=== PATIENT | female | born 1980 | race Caucasian/White ===

== ENCOUNTER 2017-11-29 04:45 | Emergency (ER) | payer SELFPAY ==
[~2017-11-29] VITALS: Ht 162.6 cm; Wt 60.5 kg
[2017-11-29 04:48] VITALS: BP 156/72; PULSE 97; RESP 18; TEMP 98.2; O2SAT 98
[2017-11-29] MEDS ORDERED: CLIN300C5 PO (04:55)
[2017-11-29] MEDS ORDERED: CLINDAMYCIN 150 MG CAP PO ONE (05:00)
[2017-11-29] MEDS ORDERED: KETOROLAC TROMETHAMINE 60 MG/2 ML (IM) VIAL IM ONE (05:00)
--- NOTE | 2017-11-29 05:03 | PD ---
HPI . Toothache Chief Complaint: Oral / Dental Pain or Problem Time Seen by Provider: 04:54 Travel History International Travel<30 days: No Contact w/Intl Traveler<30days: No Traveled to known affect area: No History of Present Illness HPI Patient presents with the chief complaint of a toothache. Onset was 3 days ago. It is getting progressively worse. She rates the pain 8/10. The pain has been unrelieved by smoking a lot of pot and taking ibuprofen. She states that she had a fever at the onset of her symptoms. She feels like she is developing a "knot" in her jaw. PFSH Past Medical History Cancer: No Cardiovascular Problems: No COPD: Yes Diabetes: No Diminished Hearing: No Hepatitis: No Hiatal Hernia: No Medical other: Yes (HX OF CHILDHOOD SEIZURES, BACK PROBLEMS, ) Respiratory: Yes (COPD) Immunizations Current: No Thyroid Disease: Yes ( A TEENAGER, NOT CURRENT) ?: Not LMP: 11/20/17 Menopausal: Yes : 2 Para: 2 Ovarian Cysts: Yes Tubal Ligation: Yes Past Surgical History Gynecologic Surgery: Yes (TUBAL LIGATION) Pacemaker: No Thoracic Surgery: Yes (BREAST AUGMENTATION) Other Surgery: Yes (BILATERAL BREAST ENHANCEMENT) Social History Alcohol Use: Yes (occassional) Tobacco Use: Yes (1 ppd ) Substance Use: Yes ("POT") Allergies-Medications (Allergen,Severity, Reaction): Coded Allergies: benztropine (Unverified Allergy, Severe, SEIZURES, 11/29/17) bupropion (Unverified Allergy, Severe, SEIZURES, 11/29/17) Reported Meds & Prescriptions Reported Meds & Active Scripts Active Clindamycin (Clindamycin HCl) 300 Mg Cap 300 Mg PO TID Review of Systems Except as stated in HPI: all other systems reviewed are Neg General / Constitutional: Positive: Fever HENT: Positive: Dental Difficulties Physical Exam Narrative GENERAL: Awake and alert and in no acute distress. SKIN: Warm and dry. HEAD: Normocephalic/atraumatic. EYES: Pupils are equal. Extraocular movements are intact. ENT: Poor dental hygiene. Her right mandibular molars are both deeply decayed. There is tenderness to percussion of the second molar. There is no third molar. No swelling of the jaw. NECK: Normal range of motion. No cervical lymphadenopathy. CARDIOVASCULAR: Regular rate and rhythm. RESPIRATORY: Nonlabored respirations. MUSCULOSKELETAL: Atraumatic. NEUROLOGICAL: Nonfocal. PSYCHIATRIC: Appropriate mood and affect. Data Data Last Documented VS Vital Signs Date Time Temp Pulse Resp B/P (MAP) Pulse Ox O2 Delivery O2 Flow Rate FiO2 11/29/17 04:48 98.2 97 18 156/72 (100) 98 Orders Orders Ketorolac Inj (Toradol Inj) (11/29/17 05:00) Clindamycin (Cleocin) (11/29/17 05:00) MDM Medical Decision Making Medical Screen Exam Complete: Yes Emergency Medical Condition: Yes Differential Diagnosis Differential diagnosis of a toothache includes but is not limited to dental caries, dental abscess, gingivitis, drug-seeking behavior. Narrative Course Patient presents with a chief complaint of a toothache. There is no associated facial swelling. There is no associated lymphadenopathy. I will treat her here with a Toradol shot. She will be discharged home on clindamycin with instructions to follow-up with a dentist. Diagnosis Primary Impression: Toothache Patient Instructions: General Instructions, Toothache (ED) Departure Forms: Tests/Procedures Additional Instructions: Follow-up with a dentist of choice Scripts Clindamycin (Clindamycin) 300 Mg Cap 300 MG PO TID for Infection, #21 CAP 0 Refills Prov: Karmen Covarrubias MD 11/29/17 Disposition: 01 DISCHARGE HOME Condition: Stable Karmen Covarrubias MD Nov 29, 2017 05:03
== END 2017-11-29 07:19 | disposition home or self-care (01) ==
LOC: PHED 04:45
DX: K08.89 Other specified disorders of teeth and supporting structures (principal); J44.9 Chronic obstructive pulmonary disease, unspecified; F17.200 Nicotine dependence, unspecified, uncomplicated; Z88.8 Allergy status to other drugs, medicaments and biological substances
CPT/HCPCS: 96372; 99284; J1885

== ENCOUNTER 2018-02-19 14:29 | Emergency (ER) | payer SELFPAY ==
[~2018-02-19] VITALS: Ht 162.6 cm; Wt 59.0 kg
[~2018-02-19 14:29] MED LIST: CLIN300C5 PO
[2018-02-19 14:34] VITALS: BP 152/79; PULSE 85; RESP 16; TEMP 98.2; O2SAT 98
--- NOTE | 2018-02-19 15:11 | PD ---
HPI Chief Complaint: Skin Problem Time Seen by Provider: 14:59 Travel History International Travel<30 days: No Contact w/Intl Traveler<30days: No Traveled to known affect area: No History of Present Illness HPI 37-year-old female presents emergency department for evaluation of wounds to left hand that occurred yesterday. Says that she was digging in a dirty pool yesterday and she accidentally cut herself on the tile. Says that she was trying to get turtles out of the pool. Says that over the last 24 hours she has had a lesion to the distal middle finger which she popped and had pus come out. In addition, says she has a laceration to the dorsal aspect of the ring finger PIP and is unable to remove the ring from her finger. Says that the pain is moderate in severity. 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 She does not know when her last tetanus vaccination was. Denies numbness or tingling. Denies fever or chills. PFSH Past Medical History Cancer: No Cardiovascular Problems: No COPD: Yes Diabetes: No Diminished Hearing: No Hepatitis: No Hiatal Hernia: No Medical other: Yes (HX OF CHILDHOOD SEIZURES, BACK PROBLEMS, ) Respiratory: Yes (COPD) Immunizations Current: No Thyroid Disease: Yes ( A TEENAGER, NOT CURRENT) Tetanus Vaccination: > 5 Years Influenza Vaccination: No ?: Not LMP: LAST MONTH Menopausal: Yes : 2 Para: 2 Ovarian Cysts: Yes Tubal Ligation: Yes Past Surgical History Gynecologic Surgery: Yes (TUBAL LIGATION) Pacemaker: No Thoracic Surgery: Yes (BREAST AUGMENTATION) Other Surgery: Yes (BILATERAL BREAST ENHANCEMENT) Social History Alcohol Use: Yes (occassional) Tobacco Use: Yes (1 ppd ) Substance Use: Yes ("POT") Allergies-Medications (Allergen,Severity, Reaction): Coded Allergies: benztropine (Unverified Allergy, Severe, SEIZURES, 02/19/18) bupropion (Unverified Allergy, Severe, SEIZURES, 02/19/18) Reported Meds & Prescriptions Reported Meds & Active Scripts Active Keflex (Cephalexin) 500 Mg Cap 500 Mg PO Q8H 10 Days Bactrim DS (Sulfamethoxazole-Trimethoprim) 800-160 Mg Tab 1 Tab PO BID Review of Systems Except as stated in HPI: all other systems reviewed are Neg Physical Exam Narrative GENERAL: Well-nourished, well-developed patient. SKIN: Focused skin assessment warm/dry. Left hand- distal aspect of middle finger with open lesion, no exudate expressed. PIP with a 1 cm laceration, superficial lesion. No exudate HEAD: Normocephalic. EYES: No scleral icterus. No injection or drainage. NECK: Supple, trachea midline. No JVD or lymphadenopathy. CARDIOVASCULAR: Regular rate and rhythm without murmurs, gallops, or rubs. RESPIRATORY: Breath sounds equal bilaterally. No accessory muscle use. GASTROINTESTINAL: Abdomen soft, non-tender, nondistended. MUSCULOSKELETAL: No cyanosis, or edema. BACK: Nontender without obvious deformity. No CVA tenderness. Data Data Last Documented VS Vital Signs Date Time Temp Pulse Resp B/P (MAP) Pulse Ox O2 Delivery O2 Flow Rate FiO2 02/19/18 14:34 98.2 85 16 152/79 (103) 98 Orders Orders Tetanus/Diphtheria Tox Adult (Tetanus/Di (02/19/18 15:30) Ed Discharge Order (02/19/18 15:46) MDM Medical Decision Making Medical Screen Exam Complete: Yes Emergency Medical Condition: Yes Differential Diagnosis Left hand laceration, cellulitis, avulsion Narrative Course 37-year-old female presents emergency department evaluation of laceration wounds to left hand that she sustained yesterday. Says that she was cleaning a pool trying to get turtles out of the pool when she accidentally cut her fingers. Says that she had a lesion that expressed past but popped this and it went away. Vital signs are stable. Physical exam findings demonstrate a laceration to the left PIP ring finger, wound to the distal aspects of the index finger Tetanus vaccine administered in the emergency department today. Perform digital block to the ring finger to assist with ring removal. We were able to successfully remove the ring from the finger. Patient will be discharged with antibiotics. Advised that she could should keep her wounds clean and dry. Advised to monitor for signs of infection. Procedures Procedure Narrative I performed a digital block of the left ring finger to assist in the ring removal. Using aseptic technique, injected approximately 3 cc lidocaine 2% without epinephrine as a digital block to the left ring finger. Diagnosis Primary Impression: Laceration of finger Qualified Codes: S61.215A - Laceration without foreign body of left ring finger without damage to nail, initial encounter Referrals: Primary Care Physician Additional Instructions: Follow up with your primary care physician within 2-3 days. If your symptoms persist or worsen, return to the emergency department. Keep area clean and dry. You may bathe as normal. You may use [id number] triple antibiotic ointments for your injury daily. Change dressings daily. If bleeding starts again, applied pressure and elevate the area. If he developed increased redness, swelling, or pain return to the emergency department. Scripts Cephalexin (Keflex) 500 Mg Cap 500 MG PO Q8H for Infection for 10 Days, #30 CAP 0 Refills Prov: Veronica Castellanos DO 02/19/18 Sulfamethoxazole-Trimethoprim (Bactrim DS) 800-160 Mg Tab 1 TAB PO BID for Infection, #20 TAB 0 Refills Prov: Veronica Castellanos DO 02/19/18 Disposition: 01 DISCHARGE HOME Condition: Stable Patt Hdez Feb 19, 2018 15:11
[2018-02-19] MEDS ORDERED: TETANUS/DIPHTHERIA TOXOID ADULT 0.5 ML VIAL IM ONE (15:30)
[2018-02-19] MEDS ORDERED: BACT800T5 PO (15:46)
[2018-02-19] MEDS ORDERED: CEPH-460 PO (15:46)
== END 2018-02-19 16:05 | disposition home or self-care (01) ==
LOC: PHEFT 14:29
DX: S61.215A Laceration without foreign body of left ring finger without damage to nail, initial encounter (principal); S60.943A Unspecified superficial injury of left middle finger, initial encounter; W26.8XXA Contact with other sharp object(s), not elsewhere classified, initial encounter; J44.9 Chronic obstructive pulmonary disease, unspecified; F17.200 Nicotine dependence, unspecified, uncomplicated; F12.90 Cannabis use, unspecified, uncomplicated; Z23 Encounter for immunization
CPT/HCPCS: 64450; 90471; 90714

== ENCOUNTER 2018-04-16 11:34 | Emergency (ER) | payer SELFPAY ==
[~2018-04-16] VITALS: Ht 162.6 cm; Wt 60.0 kg
[~2018-04-16 11:34] MED LIST changes: +BACT800T5 PO; +CEPH-460 PO; -CLIN300C5 PO
[2018-04-16 11:45] VITALS: BP 116/68; TEMP 98.5; O2SAT 100
--- NOTE | 2018-04-16 12:57 | PD ---
HPI Chief Complaint: Skin Problem Time Seen by Provider: 12:08 Travel History International Travel<30 days: No Contact w/Intl Traveler<30days: No Traveled to known affect area: No History of Present Illness HPI 38-year-old female that presents to the ED for evaluation of possible staph infection. Per patient she has bumps on her groin, axilla, face that popped up to 4 days ago. Per patient her itching also painful. She is concerned because she has a history of staph and looks the same as her staph infections in the past. Per patient her boyfriend was recently seen here for a abscess and staph infection and she is concerned that she got it from him. She states that it is red and swollen. She has one on the face but she states that she would make up because she feels very ashamed of it. She states that she feels like something is crawling on her skin. She appears to be somewhat anxious on exam. He states that her pain is 3 out of 10 but she feels more anxious and "unclean". She also states that she may have a UTI as she is having some blood in her urine. PFSH Past Medical History Cancer: No Cardiovascular Problems: No COPD: Yes Diabetes: No Diminished Hearing: No Hepatitis: No Hiatal Hernia: No Respiratory: Yes (COPD) Immunizations Current: No Thyroid Disease: Yes ( A TEENAGER, NOT CURRENT) ?: Not Menopausal: Yes : 2 Para: 2 Ovarian Cysts: Yes Tubal Ligation: Yes Past Surgical History Gynecologic Surgery: Yes (TUBAL LIGATION) Pacemaker: No Thoracic Surgery: Yes (BREAST AUGMENTATION) Other Surgery: Yes (BILATERAL BREAST ENHANCEMENT) Social History Alcohol Use: Yes (occassional) Tobacco Use: Yes (1 ppd ) Substance Use: Yes ("POT") Allergies-Medications (Allergen,Severity, Reaction): Coded Allergies: benztropine (Unverified Allergy, Severe, SEIZURES, 04/16/18) bupropion (Unverified Allergy, Severe, SEIZURES, 04/16/18) Reported Meds & Prescriptions Reported Meds & Active Scripts Active Keflex (Cephalexin) 500 Mg Cap 500 Mg PO Q8H 10 Days Bactrim DS (Sulfamethoxazole-Trimethoprim) 800-160 Mg Tab 1 Tab PO BID Review of Systems Except as stated in HPI: all other systems reviewed are Neg Physical Exam Narrative GENERAL: SKIN: Warm and dry. Seen with female nurse present at all times. Patient has an erythematous rash on right side of the face, left axilla, groin area as well. Almost appears to be bug bites but this appears to be erythematous and slightly warm to touch especially on the axilla. No obvious discharge or purulence noted. No lymphadenopathy noted. HEAD: Atraumatic. Normocephalic. EYES: Pupils equal and round. No scleral icterus. No injection or drainage. ENT: No nasal bleeding or discharge. Mucous membranes pink and moist. Tongue is midline. No uvula deviation. NECK: Trachea midline. No JVD. CARDIOVASCULAR: Regular rate and rhythm. No murmurs, S3, S4. RESPIRATORY: No accessory muscle use. Clear to auscultation. Breath sounds equal bilaterally. GASTROINTESTINAL: Abdomen soft, non-tender, nondistended. Hepatic and splenic margins not palpable. MUSCULOSKELETAL: Extremities without clubbing, cyanosis, or edema. No obvious deformities. NEUROLOGICAL: Awake and alert. No obvious cranial nerve deficits. Motor grossly within normal limits. Five out of 5 muscle strength in the arms and legs. Normal speech. PSYCHIATRIC: Appropriate mood and affect; insight and judgment normal. Data Data Last Documented VS Vital Signs Date Time Temp Pulse Resp B/P (MAP) Pulse Ox O2 Delivery O2 Flow Rate FiO2 04/16/18 11:45 98.5 101 16 116/68 (84) 100 Orders Orders Urinalysis - C+S If Indicated (04/16/18 12:11) Labs Laboratory Tests Test 04/16/18 12:18 [facility] Medical Decision Making Medical Screen Exam Complete: Yes Emergency Medical Condition: Yes Medical Record Reviewed: Yes Interpretation(s) UA shows signs of UTI Differential Diagnosis Insect bite versus staph infection versus cellulitis versus folliculitis versus UTI Narrative Course 38-year-old female that presents to the ED for evaluation of rash on the skin. Patient was properly examined and was found to have signs and symptoms which appear to be consistent with appears to be possible staph infection but unclear. They almost appear like insect bites. Some of them do not morales and they are slightly warm to the touch. Could be folliculitis. With her history of recent contact with someone with staph infection I think is reasonable to start her antibiotics. She also complained of UTI. Will check a urine. Urine came positive for UTI. Patient will be treated for this with Bactrim and Keflex. Told to follow-up closely with PCP. Given Atarax for itchiness. See ED if worsening symptoms. Diagnosis Primary Impression: Skin infection Additional Impression: UTI (urinary tract infection) Qualified Codes: N30.01 - Acute cystitis with hematuria Patient Instructions: General Instructions Additional Instructions: Take medications as prescribed. Follow-up with PCP. Symptoms should improve in the next 72 hours. Anything worsens come back to the ED. See ED if worsening symptoms. Med/Other Pt SpecificInfo: Prescription(s) given Disposition: 01 DISCHARGE HOME Condition: Stable Sabas Connelly Apr 16, 2018 12:57
[2018-04-16] MEDS ORDERED: VIST25CA PO (12:59)
[2018-04-16] MEDS ORDERED: CEPH-460 PO (12:59)
[2018-04-16] MEDS ORDERED: BACT800T5 PO (12:59)
[2018-04-16 13:02] LABS: BACTERIA, URINE FEW /hpf; BILIRUBIN, URINE NEG (NEG); BLOOD, URINE SMALL (NEG); GLUCOSE,URINE NEG (NEG); KETONE, URINE NEG (NEG); MUCUS URINE FEW /lpf (OCC); NITRITE,URINE NEG (NEG); SQUAMOUS EPITHELIAL CELL URINE 3 /hpf (0-5); URINE COLOR YELLOW (YELLW/STRAW); URINE LEUKOCYTE ESTERASE LARGE (NEG); WHITE BLOOD CELL CLUMPS FEW
== END 2018-04-16 13:23 | disposition home or self-care (01) ==
LOC: NEPK 11:34
DX: L08.9 Local infection of the skin and subcutaneous tissue, unspecified (principal); N30.01 Acute cystitis with hematuria; F17.200 Nicotine dependence, unspecified, uncomplicated
CPT/HCPCS: 81001; 87086; 99283

== ENCOUNTER 2018-08-03 21:36 | Observation (INO) ==
[2018-08-03] MEDS ORDERED: Morphine Inj 4 MG/ML Vial IV.PUSH ONE (22:20)
--- NOTE | 2018-08-03 22:31 | ED ---
HPI General Chief Complaint: Syncope Stated Complaint: syncope Time Seen by Provider: 08/03/18 22:16 History of Present Illness HPI narrative: Previously healthy 38-year-old woman had syncopal episode while at a bar having a beer. Patient was there with a friend, had only been there 30 minutes, was having first beer, began feeling lightheaded, notified her friend, but passed out before anything else could be done, and patient awakened on the floor, having struck her head, complains of headache generally, no focal neurologic symptoms, and significant neck pain, bilateral flank pain, worse in left thumb and left elbow pain. She has moderate discomfort in her left shoulder. She has not felt sick previously, has been eating and drinking normally, does not drink alcohol to excess, and had not had any similar symptoms previously during the day. Discomfort in neck is moderate to severe, 8 -9 out of 10, pain in thumb is also severe, 8-9 out of 10, with any movement. Related Data Home Medications Medication Instructions Recorded Confirmed No Known Home Medications 08/03/18 08/03/18 Previous Rx's Medication Instructions Recorded cyclobenzaprine 5 mg PO Q8HR PRN #21 tab 08/04/18 gabapentin [Neurontin] 300 mg PO TID 30 Days #90 cap 08/04/18 tramadol [Ultram] 50 mg PO Q6H PRN #12 tab 08/04/18 Allergies Allergy/AdvReac Type Severity Reaction Status Date / Time benztropine Allergy Severe SEIZURES Verified 08/03/18 21:42 bupropion Allergy Severe SEIZURES Verified 08/03/18 21:42 Review of Systems ROS: all other systems reviewed are negative Constitutional Denies chills, Denies fatigue, Denies fever(s), Denies frequent falls and Reports headache(s) Eyes Denies loss of vision ENT Denies throat swelling Cardiovascular Denies chest pain and Denies dyspnea Respiratory Denies chest congestion, Denies cough, Denies dyspnea and Denies stridor Gastrointestinal Denies abdominal pain, Denies nausea and Denies vomiting Genitourinary Reports urinary incontinence (Patient was on long board, felt that she was incontinent, has some urge to urinate.) Musculoskeletal Reports as per HPI, Reports limited range of motion and Reports radiating pain into limb Neurologic Denies abnormal speech, Denies dizziness, Reports syncope, Denies focal weakness , Denies memory loss, Denies convulsions, Denies seizure-like activity and Denies sensory deficit [facility] Social History Social History Substance History: Active Abuse Second Hand Smoke Exposure: Yes Smoking Status: Light tobacco smoker Tobacco Type: Cigarettes Packs Per Day: 0.5 Cigarettes Per Day: 10.0 How Often Do You Have a Drink Containing Alcohol: Monthly or less Recent Travel in [facility] within the Last 8 Weeks: No Recent Out of Country Travel within the Last 8 Weeks: No Immunization History Tetanus Immunization: <5 Years Exam Narrative Exam Narrative: Adult female, on long board in C-spine immobilization, rigid collar in place, awake and oriented, in obvious discomfort, predominantly neck and left thumb pain. Vital signs are stable. GENERAL: [-] SKIN: Focused skin assessment warm/dry. HEAD: Atraumatic. Normocephalic. EYES: no bony defect underlying, pupils equal and round. Extra movements normal and without pain no scleral icterus. No injection or drainage. ENT: Small 1 cm abrasion left mid forehead, TM's clear, No nasal bleeding or discharge. Mucous membranes pink and moist. NECK: palpation through C-collar tender diffusely posteriorly, bilateral and along cervical vertebra, no bony stepoff. Trachea midline. No JVD. CARDIOVASCULAR: Regular rate and rhythm. No murmur appreciated. RESPIRATORY: No accessory muscle use. Clear to auscultation. Breath sounds equal bilaterally. GASTROINTESTINAL: Abdomen soft, non-tender, nondistended. Hepatic and splenic margins not palpable. MUSCULOSKELETAL: Marked tenderness to left thumb, predominantly about carpometacarpal joint, but without significant swelling, no laceration or abrasion, joint is stable, neurovascular status from remains intact both hands, good manufacturing specialist strength bilaterally, normal capillary refill; there is also moderate tenderness to palpation of right thumb, again without evidence of trauma, no swelling, but tender more towards the carpometacarpal joint. Passive range of motion is normal, finger movement is normal. Also tenderness to left elbow, but good range of motion, normal anatomy without deformity, and mild tenderness to palpation of the left shoulder, but good range of motion without limitation. Nontender lower extremities, no joint effusions, normal range of motion lower extremities bilaterally. BACK: no lumbar tenderness NEUROLOGICAL: Awake and alert. No obvious cranial nerve deficits. Motor shows fairly good manufacturing specialist strength, although patient has perceived weakness, and she has prominent paresthesias with light stroking over both thumbs. Good flexion and extension at elbows bilaterally, but she has prominent perceived tenderness and paresthesias over her triceps posteriorly. Normal motor strength lower extremities. Normal speech. PSYCHIATRIC: Appropriate mood and affect; insight and judgment normal. Course Reevaluation(s) Reevaluation #1: Patient stable on arrival back from CT, but neurologic exam still shows prominent paresthesias, pain and perceived weakness in her upper extremities, at hand, and also in forearm and triceps on the left. Patient set up, became significantly symptomatic, felt lightheaded, required laying down immediately Time: 01:17 Initial Documented Vital Signs Temperature 99.5 F 08/03/18 21:43 Pulse Rate 86 08/03/18 21:43 Respiratory Rate 16 08/03/18 21:43 Blood Pressure 139/84 08/03/18 21:43 Pulse Oximetry 100 08/03/18 21:43 Last Documented Vital Signs Temperature 98.2 F 08/04/18 16:00 Pulse Rate 61 08/04/18 16:00 Respiratory Rate 18 08/04/18 16:00 Blood Pressure 113/59 L 08/04/18 16:00 Pulse Oximetry 100 08/04/18 16:00 Medical Decision Making MDM Narrative Medical decision making narrative: Patient sustained a fall during a spontaneous syncopal episode, while at a bar, although she was not intoxicated, had less than 1 drink. She struck her head, and reported significant neck pain , and although she objectively had good motor strength in upper extremities, she had significant paresthesias. CT scan of brain was negative, CT scan of the neck showed no evidence of fracture. Patient has persistence of subjective sensations, and its in a dermatomal pattern, which is suspicious for central cord syndrome. Consultation with neurosurgeon, Dr. Lauren, who recommended patient be admitted for observation, and to have MRI in the morning. Medical Screen Exam Complete: Yes Emergency Medical Condition: Yes Lab Data Result diagrams: 08/04/18 02:00 08/04/18 02:00 POC Results POC Urine Results Negative Lab Results 08/04/18 08/04/18 08/04/18 Range/Units 02:00 02:00 02:00 WBC 9.9 (4.0-11.0) th/mm3 RBC 4.40 (4.00-5.30) mil/mm3 Hgb 12.5 (11.6-15.3) gm/dL Hct 37.9 (35.0-46.0) % MCV 86.2 (80.0-100.0) fL MCH 28.4 (27.0-34.0) pg MCHC 33.0 (32.0-36.0) % RDW 17.0 (11.6-17.2) % Plt Count 388 (150-450) th/mm3 MPV 10.3 (7.0-11.0) fL Neut % (Auto) 69.1 (16.0-70.0) % Lymph % (Auto) 23.6 (9.0-44.0) % Mason % (Auto) 4.6 (0.0-8.0) % Eos % (Auto) 2.1 (0.0-4.0) % Baso % (Auto) 0.6 (0.0-2.0) % Neut # (Auto) 6.8 (1.8-7.7) th/mm3 Lymph # (Auto) 2.3 (1.0-4.8) th/mm3 Mason # (Auto) 0.5 (0.0-0.9) th/mm3 Eos # (Auto) 0.2 (0.0-0.4) th/mm3 Baso # (Auto) 0.1 (0.0-0.2) th/mm3 WBC Differential . Differential Comment Auto diff final PT 9.8 (9.8-11.6) sec INR 1.0 Ratio Sodium 141 (136-145) meq/L Potassium 3.9 (3.5-5.1) meq/L Chloride 107 (98-107) meq/L Carbon Dioxide 21.8 (21.0-32.0) meq/L Anion Gap 12 (5-15) meq/L BUN 29 H (7-18) mg/dL Creatinine 0.90 (0.50-1.00) mg/dL Estimated GFR 70 L (>89) mL/min Random Glucose 109 H (74-106) mg/dL Calcium 8.1 L (8.5-10.1) mg/dL Total Bilirubin 0.3 (0.2-1.0) mg/dL AST 13 L (15-37) U/L ALT 20 (10-53) U/L Alkaline Phosphatase 44 L (45-117) U/L Total Protein 6.4 (6.4-8.2) g/dL Albumin 3.3 L (3.4-5.0) g/dL Urine Opiates Screen (Neg) Ur Barbiturates Screen (Neg) Ur Amphetamines Screen (Neg) U Benzodiazepines Scrn (Neg) Urine Cocaine Screen (Neg) U Cannabinoids Screen (Neg) Serum Alcohol Less than 3 (0-5) mg/dL 08/04/18 08/04/18 Range/Units 02:00 02:18 WBC (4.0-11.0) th/mm3 RBC (4.00-5.30) mil/mm3 Hgb (11.6-15.3) gm/dL Hct (35.0-46.0) % MCV (80.0-100.0) fL MCH (27.0-34.0) pg MCHC (32.0-36.0) % RDW (11.6-17.2) % Plt Count (150-450) th/mm3 MPV (7.0-11.0) fL Neut % (Auto) (16.0-70.0) % Lymph % (Auto) (9.0-44.0) % Mason % (Auto) (0.0-8.0) % Eos % (Auto) (0.0-4.0) % Baso % (Auto) (0.0-2.0) % Neut # (Auto) (1.8-7.7) th/mm3 Lymph # (Auto) (1.0-4.8) th/mm3 Mason # (Auto) (0.0-0.9) th/mm3 Eos # (Auto) (0.0-0.4) th/mm3 Baso # (Auto) (0.0-0.2) th/mm3 WBC Differential Differential Comment PT (9.8-11.6) sec INR Ratio Sodium (136-145) meq/L Potassium (3.5-5.1) meq/L Chloride (98-107) meq/L Carbon Dioxide (21.0-32.0) meq/L Anion Gap (5-15) meq/L BUN (7-18) mg/dL Creatinine (0.50-1.00) mg/dL Estimated GFR (>89) mL/min Random Glucose (74-106) mg/dL Calcium (8.5-10.1) mg/dL Total Bilirubin (0.2-1.0) mg/dL AST (15-37) U/L ALT (10-53) U/L Alkaline Phosphatase (45-117) U/L Total Protein (6.4-8.2) g/dL Albumin (3.4-5.0) g/dL Urine Opiates Screen Neg (Neg) Ur Barbiturates Screen Neg (Neg) Ur Amphetamines Screen Neg (Neg) U Benzodiazepines Scrn Neg (Neg) Urine Cocaine Screen Neg (Neg) U Cannabinoids Screen Pos H (Neg) Serum Alcohol Cancelled (0-5) mg/dL Imaging Data Radiologist's impression: Cervical Spine CT 08/03/18 22:17 CONCLUSION: 1. No acute fracture. Moderate degenerative change with slight reversal of normal cervical lordosis Head CT 08/03/18 22:17 CONCLUSION: 1. No acute intracranial abnormalities. Stable small cystic change on the right , possibly a choroid fissure cyst. . Elbow X-Ray 08/03/18 22:20 CONCLUSION: Negative left elbow series. Hand X-Ray 08/03/18 22:20 CONCLUSION: No acute abnormality is seen. Hand X-Ray 08/03/18 22:20 CONCLUSION: Negative left hand series. Shoulder X-Ray 08/03/18 22:20 CONCLUSION: Negative single AP view of the left shoulder. Carotid Doppler Study 08/04/18 00:00 CONCLUSION: 1. Right Internal Carotid Artery: No significant stenosis or atherosclerotic plaque is visualized. 2. Left Internal Carotid Artery: No significant stenosis or atherosclerotic plaque is visualized. Cervical Spine MRI 08/04/18 00:00 CONCLUSION: 1. Multilevel degenerative disc disease most significantly at C4-C5 and extending through C6-C7. The spinal cord demonstrates mild effacement through these levels but remains normal in signal. Spinal canal is mildly narrowed at these levels. 2. Multiple areas with mild to moderate neural foraminal narrowing, as above. 3. Severe left facet arthrosis at C2-C3. Discharge Plan Discharge Disposition Patient Disposition: 30 Still Patient Discharge Condition Condition: Stable Discharge Order Discharge Orders: Discharge Order (Routine); Ordered 08/04/18 Ordered By: Hilary Luo Discharge Details Anticipated Discharge Date: 08/04/18 Discharge Comment: Please discharge once Neurosurgery has discussed with patient. Thank you. Diagnosis: Acute cervical myofascial strain, Central cord syndrome, Forehead contusion, Syncope Physicians Team ED Provider: Pb Murray Primary Care Provider: Primary Care Meagan Vizcaino Attending Provider: Hilary Luo Other Providers: Adam Benitez Status ED Status: Left Department Discharge Information Discharge Date/Time: 08/04/18 05:10
--- NOTE | 2018-08-03 22:46 | CT ---
EXAM DATE: 08/03/2018 10:26 PM EDT AGE/SEX: 38 years / Female INDICATIONS: Trauma; head injury. Neck pain, numbness in both upper extremities. CLINICAL DATA: This is the patient's initial encounter. Patient reports that signs and symptoms have been present for 1 day and indicates a pain score of 7/10. MEDICAL/SURGICAL HISTORY: None. Breast augmentation. Tubal ligation. RADIATION DOSE: 56.35 CTDI (mGy) COMPARISON: [facility], CT HEAD W/O CONTRAST, 05/28/2018. . TECHNIQUE: CT of the head without contrast. Using automated exposure control and adjustment of the mA and/or kV according to patient size, radiation dose was kept as low as reasonably achievable to ob tain optimal diagnostic quality images. DICOM format image data is available electronically for revi ew and comparison. FINDINGS: Cerebrum: The ventricles are normal for age. No evidence of midline shift, mass lesion, hemorrhage or acute infarction. No extraaxial fluid collections are seen. Posterior Fossa: The cerebellum and brainstem are intact. The 4th ventricle is midline. The cerebe llopontine angle is unremarkable. Extracranial: The visualized portion of the orbits is intact. Skull: The calvaria is intact. No evidence of skull fracture. CONCLUSION: 1. No acute intracranial abnormalities. Stable small cystic change on the right, possibly a choroid fissure cyst. . Electronically signed by: Butch De La O MD 08/03/2018 10:44 PM EDT
--- NOTE | 2018-08-03 22:50 | CT ---
EXAM DATE: 08/03/2018 10:26 PM EDT AGE/SEX: 38 years / Female INDICATIONS: Trauma; head injury. Neck pain, numbness in both upper extremities. CLINICAL DATA: This is the patient's initial encounter. Patient reports that signs and symptoms have been present for 1 day and indicates a pain score of 7/10. MEDICAL/SURGICAL HISTORY: None. Breast augmentation. Tubal ligation. RADIATION DOSE: 15.63 CTDI (mGy) COMPARISON: No prior exams available for comparison. TECHNIQUE: Contiguous axial images were obtained using helical multirow detector technique. The vol umetric data was post-processed with multiplanar reconstruction in oblique axial, sagittal, and coron al planes. Using automated exposure control and adjustment of the mA and/or kV according to patient s ize, radiation dose was kept as low as reasonably achievable to obtain optimal diagnostic quality clotilde ges. DICOM format image data is available electronically for review and comparison. FINDINGS: No acute fracture. Moderate degenerative disc disease with slight reversal of normal cervical lordosi s. At C2-3 there is no significant abnormality. At C3-4 there is no canal stenosis. Mild left foraminal stenosis. At C4-5-6-7 there is mild AP canal and lateral recess and foraminal stenosis. CONCLUSION: 1. No acute fracture. Moderate degenerative change with slight reversal of normal cervical lordosis Electronically signed by: Butch De La O MD 08/03/2018 10:48 PM EDT
--- NOTE | 2018-08-03 23:04 | XR ---
EXAM DATE: 08/03/2018 10:20 PM EDT AGE/SEX: 38 years / Female INDICATIONS: Trauma. Patient fainted and fell. CLINICAL DATA: This is the patient's initial encounter. Patient reports that signs and symptoms have been present for 1 day and indicates a pain score of 7/10. MEDICAL/SURGICAL HISTORY: None. . Breast augmentation. Tubal ligation COMPARISON: No prior exams available for comparison. FINDINGS: Bony structures are intact and in normal alignment. Joints are intact without dislocation or signifi cant arthropathy. Osseous density is normal. Soft tissues are unremarkable. No radiopaque foreign bodies seen. CONCLUSION: Negative left elbow series. Electronically signed by: Sesar Stevens MD 08/03/2018 11:03 PM EDT
--- NOTE | 2018-08-03 23:06 | XR ---
EXAM DATE: 08/03/2018 10:20 PM EDT AGE/SEX: 38 years / Female INDICATIONS: Trauma. Fainted and fell. CLINICAL DATA: This is the patient's initial encounter. Patient reports that signs and symptoms have been present for 1 day and indicates a pain score of 8/10. MEDICAL/SURGICAL HISTORY: None. . Left wrist ORIF. COMPARISON: No prior exams available for comparison. FINDINGS: There is an orthopedic plate seen along the distal volar aspect of the radius from prior fracture. 2 screws are seen through the proximal aspect of the fifth metacarpal. There are chronic well-corticate d fragments seen at the ulnar styloid region. An acute fracture is not seen. The bones and joints yves ear aligned. CONCLUSION: No acute abnormality is seen. Electronically signed by: Sesar Stevens MD 08/03/2018 11:05 PM EDT
--- NOTE | 2018-08-03 23:07 | XR ---
EXAM DATE: 08/03/2018 10:20 PM EDT AGE/SEX: 38 years / Female INDICATIONS: Pain from fall. CLINICAL DATA: This is the patient's initial encounter. Patient reports that signs and symptoms have been present for 1 day and indicates a pain score of 6/10. MEDICAL/SURGICAL HISTORY: None. None. COMPARISON: No prior exams available for comparison. FINDINGS: A single AP view of the left shoulder has been obtained. An acute fracture is not seen. The joints ap pear aligned. CONCLUSION: Negative single AP view of the left shoulder. Electronically signed by: Sesar Stevens MD 08/03/2018 11:05 PM EDT
--- NOTE | 2018-08-03 23:11 | XR ---
EXAM DATE: 08/03/2018 10:20 PM EDT AGE/SEX: 38 years / Female INDICATIONS: Trauma. Fainted and fell. CLINICAL DATA: This is the patient's initial encounter. Patient reports that signs and symptoms have been present for 1 day and indicates a pain score of 6/10. MEDICAL/SURGICAL HISTORY: None. . Left wrist ORIF. COMPARISON: No prior exams available for comparison. FINDINGS: Bony structures are intact and in normal alignment. Osseous density is normal. Soft tissues are unre markable. No radiopaque foreign bodies seen. CONCLUSION: Negative left hand series. Electronically signed by: Sesar Stevens MD 08/03/2018 11:09 PM EDT
[2018-08-04] MEDS ORDERED: Bisacodyl 10 MG Supp RECTAL PRN (02:22)
[2018-08-04 02:34] LABS: Baso # (Auto) 0.1 th/mm3 (0.0-0.2); Baso % (Auto) 0.6 % (0.0-2.0); Eos # (Auto) 0.2 th/mm3 (0.0-0.4); Eos % (Auto) 2.1 % (0.0-4.0); Hematocrit 37.9 % (35.0-46.0); Hemoglobin 12.5 gm/dL (11.6-15.3); Lymph # (Auto) 2.3 th/mm3 (1.0-4.8); Lymph % (Auto) 23.6 % (9.0-44.0); Mean Corpuscular Hemoglobin 28.4 pg (27.0-34.0); Mean Corpuscular Volume 86.2 fL (80.0-100.0); Mean Platelet Volume 10.3 fL (7.0-11.0); Mono # (Auto) 0.5 th/mm3 (0.0-0.9); Mono % (Auto) 4.6 % (0.0-8.0); Neut # (Auto) 6.8 th/mm3 (1.8-7.7); Neut % (Auto) 69.1 % (16.0-70.0); Platelet Count 388 th/mm3 (150-450); White Blood Count 9.9 th/mm3 (4.0-11.0)
[2018-08-04 02:43] LABS: Prothrombin Time 9.8 sec (9.8-11.6)
[2018-08-04 02:43] LABS: Amphetamine Screen,Urine Neg (Neg); Barbiturate Screen,Urine Neg (Neg); Cannabinoid Screen,Urine Pos (Neg); Cocaine Screen,Urine Neg (Neg); Opiate Screen,Urine Neg (Neg)
[2018-08-04 03:08] LABS: Albumin 3.3 g/dL (3.4-5.0); Anion Gap 12 meq/L (5-15); Aspartate Aminotransferase 13 U/L (15-37); Blood Urea Nitrogen 29 mg/dL (7-18); Calcium 8.1 mg/dL (8.5-10.1); Carbon Dioxide 21.8 meq/L (21.0-32.0); Chloride 107 meq/L (98-107); Glucose,Random 109 mg/dL (74-106); Potassium 3.9 meq/L (3.5-5.1); Sodium 141 meq/L (136-145)
[2018-08-04 03:11] LABS: Alanine Aminotransferase 20 U/L (10-53); Alkaline Phosphatase 44 U/L (45-117); Glomerular Filtration Rate 70 mL/min (>89); Total Protein 6.4 g/dL (6.4-8.2)
--- NOTE | 2018-08-04 05:26 | P.HPIM ---
History of Present Illness Service: [facility] Primary Care Physician: No Primary Care Physician Chief Complaint: RUE numbness History of Present Illness: 38 y/o female with no medical history was brought to the ED after having a syncopal episode at a bar. Patient states she was out with some friends and the smoked some marijuana and she went to the bar. She states she had one beer and then felt hot and didn't feel well and passed out. She hit the left side of her head and remembers being combative at first then came to. When she regained coconscious she had severe numbness an tingling in bilateral upper extremities. On examination she has tinging and limited movement to left hand and forearm and tingling in her right thumb. Limited sensation with touch to left forearm and hand. She denies any abnormality to lower extremities. Denies any chest pain , sob, fever or chills. Review of Systems All other systems reviewed negative except as stated in HPI PMFSH - History History Provided By: Patient - Medical / Surgical Hx Neg / Unobtainable Medical Problems Denied: Yes - Medical History Medical History: Medical History (Last Reviewed 08/04/18 @ 05:25 by MIAH Diehl) No significant past medical history - Surgical History Surgical History: Surgical History (Last Reviewed 08/04/18 @ 05:25 by MIAH Diehl) H/O breast augmentation H/O tubal ligation History of surgery on arm - Family History Family History: Family History (Last Reviewed 08/04/18 @ 05:25 by MIAH Diehl) Other Family history normal - Social History I have reviewed the patient's Social History: Yes - Tobacco History Second Hand Smoke Exposure: Yes Tobacco Use In Past 30 Days: Yes Smoking Status: Current every day smoker Tobacco Type: Cigarettes Packs Per Day: 0.5 - Alcohol History How Often Do You Have a Drink Containing Alcohol: 2 to 3 times a week - Substance Use History Substance History: Active Abuse - Substance Use Type Marijuana Status: Active Route Used: Inhalation Reason for Use: Feels Good - Immunization History Tetanus Immunization: <5 Years Medications and Allergies Active Medications: Active Medications Al Hydroxide/Mg Hydroxide (Milk Of Magnesia Liq) 30 ml PO Q12H PRN PRN Reason: Mild Constipation Bisacodyl (Dulcolax Supp) 10 mg RECTAL DAILY PRN PRN Reason: SEVERE CONSITIPATION Cyclobenzaprine HCl (Flexeril) 5 mg PO Q8HR PRN PRN Reason: MUSCLE PAIN Sodium Chloride (Ns Inj) 1,000 mls @ 100 mls/hr IV.CONT .Q10H SAM Lactulose (Lactulose Liq) 30 ml PO DAILY PRN PRN Reason: SEVERE CONSITIPATION Ondansetron HCl (Zofran Inj) 4 mg IV.PUSH Q6H PRN PRN Reason: NAUSEA OR VOMITING Sennosides (Senokot) 17.2 mg PO Q12H PRN PRN Reason: Moderate Constipation Allergies Allergy/AdvReac Type Severity Reaction Status Date / Time benztropine Allergy Severe SEIZURES Verified 08/03/18 21:42 bupropion Allergy Severe SEIZURES Verified 08/03/18 21:42 Home Medications Medication Instructions Recorded Confirmed Type No Known Home Medications 08/03/18 08/03/18 History Exam Vital signs: Vital Signs 08/03/18 21:43 Temperature 99.5 F Pulse Rate 86 Respiratory Rate 16 Blood Pressure 139/84 Pulse Oximetry 100 Intake & Output 08/03/18 08/03/18 08/04/18 06:59 18:59 06:59 Weight 58.967 kg Narrative: GENERAL: This is a well-nourished, well-developed patient, in no apparent distress. SKin: abrasion to left forehead CARDIOVASCULAR: Regular rate and rhythm without murmurs, gallops, or rubs. RESPIRATORY: Clear to auscultation. Breath sounds equal bilaterally. No wheezes , rales, or rhonchi. GASTROINTESTINAL: Abdomen soft, non-tender, nondistended. Normal active bowel sounds MUSCULOSKELETAL: Extremities without clubbing, cyanosis, or edema. NEURO: Alert & Oriented x4 to person, place, time, situation. Limited movement to left upper extremity, weak grasp, limited sensation, limited sensation in right thumb Results - Labs CBC & Chem 7: 08/04/18 02:00 08/04/18 02:00 Labs: Short CBC 08/04/18 Range/Units 02:00 WBC 9.9 (4.0-11.0) th/mm3 Hgb 12.5 (11.6-15.3) gm/dL Hct 37.9 (35.0-46.0) % Plt Count 388 (150-450) th/mm3 BMP 08/04/18 02:00 Sodium 141 Potassium 3.9 Chloride 107 Carbon Dioxide 21.8 BUN 29 H Creatinine 0.90 Calcium 8.1 L Liver Function 08/04/18 Range/Units 02:00 Total Bilirubin 0.3 (0.2-1.0) mg/dL AST 13 L (15-37) U/L ALT 20 (10-53) U/L Alkaline Phosphatase 44 L (45-117) U/L Albumin 3.3 L (3.4-5.0) g/dL - Imaging Impressions Cervical Spine CT 08/03/18 22:17 CONCLUSION: 1. No acute fracture. Moderate degenerative change with slight reversal of normal cervical lordosis Head CT 08/03/18 22:17 CONCLUSION: 1. No acute intracranial abnormalities. Stable small cystic change on the right , possibly a choroid fissure cyst. . Elbow X-Ray 08/03/18 22:20 CONCLUSION: Negative left elbow series. Hand X-Ray 08/03/18 22:20 CONCLUSION: No acute abnormality is seen. Hand X-Ray 08/03/18 22:20 CONCLUSION: Negative left hand series. Shoulder X-Ray 08/03/18 22:20 CONCLUSION: Negative single AP view of the left shoulder. Caprini VTE Risk Assessment Caprini VTE Risk Assessment: No/Low Risk (score <= 1) Caprini Risk Assessment Model: Point Value = 1 Point Value = 2 Point Value = 3 Point Value = 5 Age 41-60 Minor surgery BMI > 25 kg/m2 Swollen legs Varicose veins or History of unexplained or recurrent spontaneous Oral contraceptives or hormone replacement Sepsis (< 1 month) Serious lung disease, including pneumonia (< 1 month) Abnormal pulmonary function Acute myocardial infarction Congestive heart failure (< 1 month) History of inflammatory bowel disease Medical patient at bed rest Age 61-74 Arthroscopic surgery Major open surgery (> 45 min) Laparoscopic surgery (> 45 min) Malignancy Confined to bed (> 72 hours) Immobilizing plaster cast Central venous access Age >= 75 History of VTE Family history of VTE Factor V Leiden Prothrombin [id number] Lupus anticoagulant Anticardiolipin antibodies Elevated serum homocysteine Heparin-induced thrombocytopenia Other congenital or acquired thrombophilia Stroke (< 1 month) Elective arthroplasty Hip, pelvis, or leg fracture Acute spinal cord injury (< 1 month) Prophylaxis Regimen: Total Risk Factor Score Risk Level Prophylaxis Regimen 0-1 Low Early ambulation 2 Moderate Order ONE of the following: *Sequential Compression Device (SCD) *Heparin 5000 units SQ BID 3-4 Higher Order ONE of the following medications: *Heparin 5000 units SQ TID *Enoxaparin/Lovenox 40 mg SQ daily (WT < 150 kg, CrCl > 30 mL/min) *Enoxaparin/Lovenox 30 mg SQ daily (WT < 150 kg, CrCl > 10-29 mL/min) *Enoxaparin/Lovenox 30 mg SQ BID (WT < 150 kg, CrCl > 30 mL/min) AND/OR *Sequential Compression Device (SCD) 5 or more Highest Order ONE of the following medications: *Heparin 5000 units SQ TID (Preferred with Epidurals) *Enoxaparin/Lovenox 40 mg SQ daily (WT < 150 kg, CrCl > 30 mL/min) *Enoxaparin/Lovenox 30 mg SQ daily (WT < 150 kg, CrCl > 10-29 mL/min) *Enoxaparin/Lovenox 30 mg SQ BID (WT < 150 kg, CrCl > 30 mL/min) AND *Sequential Compression Device (SCD) Assessment and Plan - Plan Numbness and tingling to upper extremities, possible central cord syndrome due to traumatic fall Cervical CT reviewed and shows C3-4 Mild left foraminal stenosis and at C4-5-6- 7 there is mild AP canal and lateral recess and foraminal stenosis. -MRI cervical spine ordered -Alissa Gunn until MRI completed -OT/PT -Consult to neurosurgery for evaluation -Flexeril as needed Syncope, possible related to mixing drug and alcohol -Carotid US ordered -Orthostatics ordered DVT prophylaxis: SCDs Discussed Condition With: Patient and RN
[2018-08-04] MEDS: Sod Chloride 0.9% Inj 1,000 ML IV.CONT SCH ×2 (06:00→13:51)
[2018-08-04] MEDS ORDERED: Morphine Inj 4 MG/ML Vial IV.PUSH ONE (08:09)
[2018-08-04] MEDS: Gabapentin 300 MG Capsule PO SCH ×3 (08:41→17:43)
--- NOTE | 2018-08-04 09:11 | P.CONNS ---
History of Present Illness Primary Care Provider: No Primary Care Physician Family Provider: No Primary Care Physician Chief Complaint: Central cord syndrome History of Present Illness: 38 y/o female who presents after a syncopal episode at a bar/restaurant. She had one glass of an alcoholic beverage and reportedly had marijuana intake when she became flush and had a syncopal event striking the left side of her head. She awoke combative and confused. She noted bilateral upper extremity paresthesias and pain. She was transported to the ED for evaluation. CT of the head unremarkable for intracranial abnormality or skull fracture. CT of the cervical spine demonstrates multi-level degenerative changes, no evidence of fracture. She endorses left upper extremity allodynia and numbness, most pronounced in her hand but extending proximally to her left shoulder. She describes mild numbness in her right upper extremity, primarily in her hand. Review of Systems All other systems reviewed negative except as stated in HPI PMFSH - History History Provided By: Patient - Medical / Surgical Hx Neg / Unobtainable Medical Problems Denied: Yes - Medical History Medical History: Medical History (Last Reviewed 08/04/18 @ 05:25 by MIAH Diehl) No significant past medical history - Surgical History Surgical History: Surgical History (Last Reviewed 08/04/18 @ 05:25 by MIAH Diehl) H/O breast augmentation H/O tubal ligation History of surgery on arm - Family History Family History: Family History (Last Reviewed 08/04/18 @ 05:25 by MIAH Diehl) Other Family history normal - Tobacco History Second Hand Smoke Exposure: Yes Tobacco Use In Past 30 Days: Yes Smoking Status: Light tobacco smoker Tobacco Type: Cigarettes Packs Per Day: 0.5 - Alcohol History How Often Do You Have a Drink Containing Alcohol: Monthly or less - Substance Use History Substance History: Active Abuse - Substance Use Type Marijuana Type: DAILY MARIJUANA Status: Active Route Used: Inhalation Frequency: DAILY Last Used: TODAY Reason for Use: Calm Down - Travel History Recent Travel in the [place] Within the Last 8 Weeks: No Recent Travel Out of the Country Within the Last 8 Weeks: No - Immunization History Tetanus Immunization: <5 Years Medications and Allergies Active Medications: Active Medications Al Hydroxide/Mg Hydroxide (Milk Of Magnesia Liq) 30 ml PO Q12H PRN PRN Reason: Mild Constipation Bisacodyl (Dulcolax Supp) 10 mg RECTAL DAILY PRN PRN Reason: SEVERE CONSITIPATION Cyclobenzaprine HCl (Flexeril) 5 mg PO Q8HR PRN PRN Reason: MUSCLE PAIN Last Admin: 08/04/18 06:08 Dose: 5 mg Gabapentin (Neurontin) 300 mg PO TID REPLACED BY [facility] Last Admin: 08/04/18 08:41 Dose: 300 mg Sodium Chloride (Ns Inj) 1,000 mls @ 100 mls/hr IV.CONT .Q10H REPLACED BY [facility] Last Admin: 08/04/18 06:00 Dose: 100 mls/hr Lactulose (Lactulose Liq) 30 ml PO DAILY PRN PRN Reason: SEVERE CONSITIPATION Ondansetron HCl (Zofran Inj) 4 mg IV.PUSH Q6H PRN PRN Reason: NAUSEA OR VOMITING Sennosides (Senokot) 17.2 mg PO Q12H PRN PRN Reason: Moderate Constipation Allergies Allergy/AdvReac Type Severity Reaction Status Date / Time benztropine Allergy Severe SEIZURES Verified 08/03/18 21:42 bupropion Allergy Severe SEIZURES Verified 08/03/18 21:42 Home Medications Medication Instructions Recorded Confirmed Type No Known Home Medications 08/03/18 08/03/18 History Exam Vital signs: Vital Signs 08/03/18 21:43 08/04/18 03:24 08/04/18 08:00 Temperature 99.5 F 97.6 F Pulse Rate 86 82 65 Respiratory Rate 16 16 16 Blood Pressure 139/84 139/70 Pulse Oximetry 100 98 08/04/18 08:14 08/04/18 08:16 08/04/18 08:17 Temperature Pulse Rate 64 64 Respiratory Rate 16 16 20 Blood Pressure 135/82 137/86 Pulse Oximetry 97 99 Intake & Output 08/03/18 08/04/18 08/04/18 18:59 06:59 18:59 Intake Total 200 / 200 Balance 200 / 200 Weight 58.967 kg 58.967 kg Intake: Oral 200 / 200 Other: # Voids 2 Weight On Admission 58.967 kg Narrative: Opens eyes spontaneously PERRL EOMI Bright, awake Alert and oriented x3 Right upper extremity 5/5 strength Left upper extremity: deltoid 4+/5, triceps 4-/5, biceps 4-/5, licensed loan officer assistant 3/5, hand intrinsics 3/5 Bilateral lower extremities: 5/5 strength Reflexes: Right Left Biceps 3 2 Triceps 2 2 Patella 3 3 Achilles 2 2 Severe allodynia in the left upper extremity Mild allodynia in the right upper extremity Cervical collar in place. Results - Laboratory Findings CBC and BMP: 08/04/18 02:00 08/04/18 02:00 Abnormal lab findings: Abnormal Labs 08/04/18 08/04/18 02:00 02:18 BUN 29 H Estimated GFR 70 L Random Glucose 109 H Calcium 8.1 L AST 13 L Alkaline Phosphatase 44 L Albumin 3.3 L U Cannabinoids Screen Pos H - Diagnostic Findings Additional findings: CT of the head unremarkable for intracranial abnormality or skull fracture. CT of the cervical spine demonstrates multi-level degenerative changes, no evidence of fracture. Assessment and Plan - Plan Ms. Villanueva is a 38 y/o female s/p syncope resulting in fall who presents with evidence of a central cord syndrome. She has severe allodynia of the left upper extremity with 3-4/5 strength throughout. She has mild allodynia in the right upper extremity, but full strength. CT of the cervical spine with multi- level degenerative changes. MRI of the cervical spine is pending, but she likely had a hyperextension injury resulting in traumatic injury to her spinal cord, now with a central cord syndrome presentation. We discussed the natural history of central cord syndrome (improvement in allodynia and strength over a prolonged period of time). We discussed that acute surgical intervention (i.e. decompression) does not alter the natural history, but can prevent future injury should she sustain another traumatic event. We discussed that typically narcotic pain medication does not provide significant relief to neuropathic pain. Plan: Follow-up MRI of the cervical spine. Allow permissive hypertension with MAP goal of ~85 to enhance spinal cord perfusion. [place] J cervical collar. Initiate gabapentin for neuropathic pain management.
[2018-08-04] MEDS ORDERED: Acetaminophen 325 MG Tablet PO PRN (09:20)
--- NOTE | 2018-08-04 09:20 | P.PN ---
Subjective Interval history: Follow-up for central cord syndrome. Patient is currently resting in bed. She complains of significant neck pain as well as radiation to her left arm. She has a [place] J collar in place. No fever or chills. Physical Exam Vital signs: Vital Signs 08/03/18 21:43 08/04/18 03:24 08/04/18 08:00 Temperature 99.5 F 97.6 F Pulse Rate 86 82 65 Respiratory Rate 16 16 16 Blood Pressure 139/84 139/70 Pulse Oximetry 100 98 08/04/18 08:14 08/04/18 08:16 08/04/18 08:17 Temperature Pulse Rate 64 64 Respiratory Rate 16 16 20 Blood Pressure 135/82 137/86 Pulse Oximetry 97 99 Intake & Output 08/03/18 08/04/18 08/04/18 18:59 06:59 18:59 Intake Total 200 / 200 Balance 200 / 200 Weight 58.967 kg 58.967 kg Intake: Oral 200 / 200 Other: # Voids 2 Weight On Admission 58.967 kg Narrative: GENERAL: Alert, oriented x3, NAD. [place] J collar in place. SKIN: Warm and dry. HEAD: Normocephalic. EYES: No scleral icterus. No injection or drainage. NECK: Supple, trachea midline. No JVD or lymphadenopathy. CARDIOVASCULAR: Regular rate and rhythm without murmurs, gallops, or rubs. RESPIRATORY: Breath sounds equal bilaterally. No accessory muscle use. GASTROINTESTINAL: Abdomen soft, non-tender, nondistended. MUSCULOSKELETAL: No cyanosis, or edema. BACK: Nontender without obvious deformity. No CVA tenderness. Results - Labs CBC & Chem 7: 08/04/18 02:00 08/04/18 02:00 Laboratory Results - last 24 hr 08/04/18 08/04/18 08/04/18 02:00 02:00 02:00 WBC 9.9 RBC 4.40 Hgb 12.5 Hct 37.9 MCV 86.2 MCH 28.4 MCHC 33.0 RDW 17.0 Plt Count 388 MPV 10.3 Neut % (Auto) 69.1 Lymph % (Auto) 23.6 [place] % (Auto) 4.6 Eos % (Auto) 2.1 Baso % (Auto) 0.6 Neut # (Auto) 6.8 Lymph # (Auto) 2.3 [place] # (Auto) 0.5 Eos # (Auto) 0.2 Baso # (Auto) 0.1 WBC Differential . Differential Comment Auto diff final PT 9.8 INR 1.0 Sodium 141 Potassium 3.9 Chloride 107 Carbon Dioxide 21.8 Anion Gap 12 BUN 29 H Creatinine 0.90 Estimated GFR 70 L Random Glucose 109 H Calcium 8.1 L Total Bilirubin 0.3 AST 13 L ALT 20 Alkaline Phosphatase 44 L Total Protein 6.4 Albumin 3.3 L Urine Opiates Screen Ur Barbiturates Screen Ur Amphetamines Screen U Benzodiazepines Scrn Urine Cocaine Screen U Cannabinoids Screen Serum Alcohol Less than 3 08/04/18 08/04/18 02:00 02:18 WBC RBC Hgb Hct MCV MCH MCHC RDW Plt Count MPV Neut % (Auto) Lymph % (Auto) [place] % (Auto) Eos % (Auto) Baso % (Auto) Neut # (Auto) Lymph # (Auto) [place] # (Auto) Eos # (Auto) Baso # (Auto) WBC Differential Differential Comment PT INR Sodium Potassium Chloride Carbon Dioxide Anion Gap BUN Creatinine Estimated GFR Random Glucose Calcium Total Bilirubin AST ALT Alkaline Phosphatase Total Protein Albumin Urine Opiates Screen Neg Ur Barbiturates Screen Neg Ur Amphetamines Screen Neg U Benzodiazepines Scrn Neg Urine Cocaine Screen Neg U Cannabinoids Screen Pos H Serum Alcohol Cancelled - Imaging Impressions Cervical Spine CT 08/03/18 22:17 CONCLUSION: 1. No acute fracture. Moderate degenerative change with slight reversal of normal cervical lordosis Head CT 08/03/18 22:17 CONCLUSION: 1. No acute intracranial abnormalities. Stable small cystic change on the right , possibly a choroid fissure cyst. . Elbow X-Ray 08/03/18 22:20 CONCLUSION: Negative left elbow series. Hand X-Ray 08/03/18 22:20 CONCLUSION: No acute abnormality is seen. Hand X-Ray 08/03/18 22:20 CONCLUSION: Negative left hand series. Shoulder X-Ray 08/03/18 22:20 CONCLUSION: Negative single AP view of the left shoulder. Assessment and Plan - Assessment (1) Central cord syndrome Code(s): S14.129A - Central cord syndrome at unspecified level of cervical spinal cord, initial encounter Status: Acute (2) Forehead contusion Code(s): S00.83XA - Contusion of other part of head, initial encounter Status : Acute (3) Syncope Code(s): R55 - Syncope and collapse Status: Acute - Plan Ms. Villanueva is a pleasant 38-year-old female with no significant medical history who was admitted to the hospital after having a syncopal episode. CT head was unremarkable. CT of the cervical spine showed multilevel degenerative changes no acute fracture. Neurosurgery was consulted. Acute central cord syndrome -Neurosurgery is following. MRI of the cervical spine pending. -Per neurosurgery, allow permissive hypertension with map of 85 -Continue [place] J collar. -We will start patient on gabapentin 300 mg 3 times daily. -Acetaminophen, [place], morphine for pain management. Syncope -Likely related to substance abuse including alcohol. -Carotid ultrasound pending though it might be of low yield. -PT OT pending. Full code. SCDs. (1) Central cord syndrome Qualifiers: Encounter type: initial encounter Qualified Code(s): S14.129A - Central cord syndrome at unspecified level of cervical spinal cord, initial encounter (2) Forehead contusion Qualifiers: Encounter type: initial encounter Qualified Code(s): S00.83XA - Contusion of other part of head, initial encounter (3) Syncope Qualifiers: Syncope type: unspecified Qualified Code(s): R55 - Syncope and collapse
[2018-08-04] MEDS ORDERED: Morphine Inj 4 MG/ML Vial IV.PUSH PRN (09:21)
--- NOTE | 2018-08-04 10:29 | US ---
EXAM DATE: 08/04/2018 12:00 AM EDT AGE/SEX: 38 years / Female INDICATIONS: Syncope. CLINICAL DATA: This is the patient's initial encounter. Patient reports that signs and symptoms have been present for 1 day and indicates a pain score of 0/10. MEDICAL/SURGICAL HISTORY: . Tobacco abuse. . Breast augmentation. Tubal ligation. COMPARISON: No prior exams available for comparison. VELOCITY PARAMETERS: ICA/CCA Ratio: Right 0.9 , Left 0.8 ICA: Right 77 cm/sec, Left 78 cm/sec CCA: Right 82 cm/sec, Left 93 cm/sec ECA: Right 70 cm/sec, Left 86 cm/sec Vertebral: Right 49 cm/sec antegrade, Left 57 cm/sec antegrade FINDINGS: Right Carotid: No significant plaque is visualized.The waveforms are within normal limits. Left Carotid: No significant plaque is visualized. The waveforms are within normal limits. Other: None. CONCLUSION: 1. Right Internal Carotid Artery: No significant stenosis or atherosclerotic plaque is visualized. 2. Left Internal Carotid Artery: No significant stenosis or atherosclerotic plaque is visualized. Electronically signed by: Sesar Lucas MD 08/04/2018 10:28 AM EDT
--- NOTE | 2018-08-04 10:40 | MR ---
EXAM DATE: 08/04/2018 9:54 AM EDT AGE/SEX: 38 years / Female INDICATIONS: . Bilateral upper extremity numbness. CLINICAL DATA: This is the patient's initial encounter. Patient reports that signs and symptoms have been present for 1 day and indicates a pain score of 0/10. MEDICAL/SURGICAL HISTORY: None. Tubal ligation. Hand repair. Breast augmentation. COMPARISON: [facility] [place], CT CERVICAL SPINE W/O CONTRAST, 08/03/2018. . TECHNIQUE: Multiplanar, multisequence MRI examination of the cervical spine was performed without co ntrast. FINDINGS: Vertebrae: Bone marrow signal is within normal limits. No acute abnormality. Alignment: No anterolisthesis or retrolisthesis. Cord: Normal signal. The cord is effaced at C4-C5 and extending through C6-C7. Post Fossa: The cerebellar tonsils are normal in position. The craniocervical junction and C1-C2 level demonstrate no acute abnormality. C2-C3: There is severe left facet arthrosis. Left uncovertebral osteophyte is present mildly narrowi ng the left neural foramen. No spinal canal stenosis or right neural foraminal narrowing is present. C3-C4: Mild decreased disc height with endplate osteophytes anteriorly and posterior disc osteophyte complex with small uncovertebral osteophytes. Spinal canal is not significantly narrowed. There is m oderate left neural foraminal stenosis. C4-C5: Decreased disc height with endplate osteophytes anteriorly and moderate diffuse disc bulge th at mildly narrows the spinal canal. Left uncovertebral osteophyte also mildly narrows the left neural foramen. C5-C6: Decreased disc height with endplate osteophytes. There is diffuse posterior disc osteophyte c omplex and small right uncovertebral osteophyte. Spinal cord is mildly effaced at this level and the canal is mildly narrowed. There is mild right neural foraminal stenosis. C6-C7: Decreased disc height with endplate osteophytes anteriorly and central disc protrusion which abuts and effaces the spinal cord. Spinal canal is mildly narrowed. There are left uncovertebral oste ophytes causing mild to moderate left neural foraminal narrowing. C7-T1: No disc herniation, canal stenosis, or neural foraminal stenosis. Other: The visualized surrounding structures demonstrate no acute abnormality. CONCLUSION: 1. Multilevel degenerative disc disease most significantly at C4-C5 and extending through C6-C7. The spinal cord demonstrates mild effacement through these levels but remains normal in signal. Spinal c anal is mildly narrowed at these levels. 2. Multiple areas with mild to moderate neural foraminal narrowing, as above. 3. Severe left facet arthrosis at C2-C3. Electronically signed by: Sesar Lucas MD 08/04/2018 10:39 AM EDT
[2018-08-04] MEDS ORDERED: HYDROmorphone PF Inj 2 MG/ML Vial IV.PUSH PRN (11:42)
[2018-08-04 12:46] VITALS: RESP 18
[2018-08-04 17:07] VITALS: BP 113/59; PULSE 61; TEMP 98.2; O2SAT 100
== END 2018-08-04 21:21 | disposition home or self-care (01) ==
LOC: NEPC 21:36 → NEDA 21:36 → NEPFCDU 08-04 05:02
PROVIDERS: ADMIT Hospitalist; ATTEND Hospitalist